=== PATIENT | male | born 1960 | race Caucasian/White ===

== ENCOUNTER 2024-08-31 05:58 | Day surgery (SDC) | payer OTHER, BC ==
[2024-08-29 11:26] LABS: Absolute Eosinophils 0.1 K/uL (0-0.5); Absolute Lymphocytes (CBC) 1.2 K/uL (0.7-4.9); Absolute Monocytes 0.6 K/uL (0.1-1.3); Absolute Neutrophil 4.5 K/uL (1.8-8.0); Basophils % 0.4 % (0-1.3); Eosinophils % 0.8 % (0-4.4); Hematocrit 42.9 % (39.6-49.0); Hemoglobin 14.3 g/dL (13.6-17.9); MCH 30.8 pg (27.0-35.0); MCHC 33.4 g/dL (32.0-36.0); MCV 92.1 fL (80-100); MPV 9.4 fL (7.6-11.3); Monocytes % 8.9 % (3.3-12.3); Neutrophils % 70.9 % (41.7-73.7); Platelets 194 thou/uL (152-406); RBC Red Blood Cell Count 4.66 M/uL (4.33-5.43); Red Cell Distribution Width 13.3 % (12.1-15.2)
[2024-08-29 11:33] LABS: Anion Gap 3.2 mEq/L (5.0-15.0); Potassium 4.2 mEq/L (3.5-5.1)
--- NOTE | 2024-08-29 17:07 | RAD REPORT ---
EXAMINATION: TWO VIEW CHEST XR CLINICAL INDICATION: Male, 64 years old[address] [facility] MA[facility] pre op for day surgery. Hypertension TECHNIQUE: 2 view radiographs of the chest were performed. COMPARISON: No prior exam. FINDINGS: The lungs are well inflated and clear. No pneumothorax or sizable effusion. The heart is normal in si ze. Mediastinal contours are unremarkable. IMPRESSION: No acute or significant abnormalities.
--- NOTE | 2024-08-30 11:51 | EKG ---
Test Date: 2024-08-29 Test Time: 11:40:40 Joy Operator: MARIELENA MEASUREMENT RESULTS: Intervals: Rate: 73 OK: 198 QRSD: 128 QT: 410 QTc: 451 [place]: P: 59 OK: 198 QRS: 57 T: 18 INTERPRETIVE STATEMENTS: Normal sinus rhythm Right bundle branch block Abnormal ECG No previous ECG available for comparison Electronically Signed On 08-30-24 11:50:26 CERTIFIED NOVELL ADMINISTRATOR by Haseeb Almonte
[2024-08-31] MEDS ORDERED: CEFAZOLIN SODIUM 1 GM/VIAL ONE (06:16)
[2024-08-31] MEDS ORDERED: ROCURONIUM 50 MG/5 ML VIAL IV ONE (06:42)
[2024-08-31] MEDS ORDERED: propofoL 200 MG/20 ML VIAL IV ONE (06:42)
[2024-08-31] MEDS ORDERED: KETOROLAC 30 MG/ML INJ ONE (06:42)
[2024-08-31] MEDS ORDERED: LIDOCAINE 2% MPF 5 ML VIAL ONE (06:42)
[2024-08-31] MEDS ORDERED: dexAMETHasone 10 MG/ML VIAL ONE (06:42)
[2024-08-31] MEDS ORDERED: ONDANSETRON 4 MG/2 ML VIAL ONE (06:42)
[2024-08-31] MEDS ORDERED: MIDAZOLAM HCL 2 MG/2 ML INJ ONE (06:43)
[2024-08-31] MEDS ORDERED: FENTANYL CITR 100 MCG/2 ML ONE (06:43)
[2024-08-31] MEDS: Ringers Lactate 1,000 ML IV ONE ×2 (07:10→08:25)
[2024-08-31] MEDS: BUPIVACAINE 0.5% PF 10 ML VIAL ONE ×2 (07:41→08:15)
[2024-08-31] MEDS ORDERED: VECURONIUM 10 MG/VIAL IV ONE (07:56)
[2024-08-31] MEDS ORDERED: NS 0.9% VIAL 10 ML ONE (07:56)
[2024-08-31] MEDS ORDERED: Mastisol Adhesive Liq ONE (08:29)
[2024-08-31] MEDS ORDERED: GLYCOPYRROLATE 0.2 MG/ML SYR ONE (08:37)
[2024-08-31] MEDS ORDERED: NEOSTIGMINE 1 MG/ML -10 ML VIAL ONE (08:37)
--- NOTE | 2024-08-31 08:44 | P.OP ---
Date of Service: 08/31/24 Preop diagnosis: Ventral hernia and right inguinal hernia Postop diagnosis: Same Procedure performed: Laparoscopic repair of ventral hernia and open repair of right inguinal hernia Surgeon: Tanvir Fregoso MD Conservation Engineer: Cecily JIMENEZ Estimated blood loss: Minimal Specimen: Hernia sac and cord lipoma Findings: As above Anesthesia: General Complications: None Drains: None Fluids and blood products: Nonapplicable Disposition: Recovery room Operative note: Patient brought to the OR placed in supine position. General anesthesia began. Patient prepped and draped in usual sterile fashion. Marcaine 0.5% infiltrated locally. 15 blade used to make a 1 cm left upper quadrant incision. Subcutaneous tissue divided. Bleeding controlled cautery. Fascia identified and divided. #1 Vicryl stay suture placed. Peritoneal cavity entered with sharp and blunt dissection. 12 mm trocar placed in the peritoneal cavity under direct vision. Pneumoperitoneum established. 5 mm meter trocar placed in the left lower quadrant. Laparoscopy revealed a small ventral hernia with preperitoneal fat. A 3 cm incision made over the hernia itself. Subcutaneous tissue divided. Hernia sac and contents identified. Hernia sac freed from the surrounding structures as well as the fascial edges. Hernia sac removed and sent to pathology as specimen. Approximately a 2 cm defect remained. A medium size Ventralex mesh placed and the hernia defect closed with #1 PDS suture. Absorbable tack used to secure the mesh to the peritoneal surface. Complete coverage of the hernia defect accomplished with 3 cm borders in all sites. No evidence of bowel injury or bleeding noted. All trocars removed under direct vision. Stay sutures tied to each other to reapproximate the fascial defect. Subcutaneous wounds irrigated and bleeding controlled cautery. 3-0 chromic used to approximate subcutaneous tissue and close skin. A 4 cm oblique incision made between the right pubic tubercle and the anterior iliac superior spine. Subcutaneous tissue divided. Kashif's fascia identified and divided. Bleeding controlled cautery. Aponeurosis of the external abdominal oblique identified and mobilized inferiorly to expose the shelving edge. The aponeurosis opened through the external ring. Ilioinguinal nerve and cord structures identified and mobilized at the pubic tubercle. Cord skeletonized. A large cord lipoma excised and the base tied off with 2-0 chromic. The cord lipoma sent to pathology as specimen. There was no indirect sac present. There was a direct right inguinal hernia present and this sac was reduced back into the peritoneal cavity. The floor of the inguinal region was reapproximated by joining the conjoined tendon to the shelving edge starting at the pubic tubercle and creating a new internal ring. This was done with 2-0 Prolene suture. Marlex mesh plug was placed in the internal ring and secured with the tacker. Onlay mesh was placed in the inguinal floor secured medially to the pubic tubercle, superior to the conjoined tendon, inferior to the shelving edge and laterally to each other. Cord structures and ilioinguinal nerve placed back in their anatomic location. Aponeurosis closed with 2-0 running Prolene suture. 3-0 chromic used to reapproximate Kashif's fascia. 3-0 chromic also used to close skin. Sterile dressing applied. Patient awakened and taken to recovery room in good general condition. CC: Dr. Manasa Fregoso's office
[2024-08-31] MEDS ORDERED: HYDROCODONE/APAP 7.5/325 MG TAB ONE (10:14)
[2024-08-31] MEDS: HYDROCODONE/APAP 7.5/325 MG TAB PO PRN (10:16)
[2024-08-31 12:08] VITALS: O2SAT 100
[2024-08-31 14:05] VITALS: BP 112/67; TEMP 98.1
== END 2024-08-31 12:27 | disposition home or self-care (01) ==
LOC: OR 05:58
PROVIDERS: ATTEND Surgery
PROC: 0WUF4JZ Supplement Abdominal Wall with Synthetic Substitute, Percutaneous Endoscopic Approach (ICD-10-PCS; principal; 2024-08-31 07:00)
PROC: 0YU50JZ Supplement Right Inguinal Region with Synthetic Substitute, Open Approach (ICD-10-PCS; 2024-08-31 07:00)
DX: K43.9 Ventral hernia without obstruction or gangrene (principal); K40.90 Unilateral inguinal hernia, without obstruction or gangrene, not specified as recurrent
CPT/HCPCS: 93005; 85025; 80048; 36415; 88302; 71046; 49593; 49505; A4216; J2704; J2710; J2003; J2250; J3010; J1100; J2405; J7120 ×2; J0690; A4314

== ENCOUNTER 2024-12-10 07:01 | Day surgery (SDC) | payer OTHER, BC ==
[2024-12-05 13:53] LABS: Absolute Eosinophils 0.1 K/uL (0-0.5); Absolute Lymphocytes (CBC) 1.4 K/uL (0.7-4.9); Absolute Monocytes 0.5 K/uL (0.1-1.3); Absolute Neutrophil 3.5 K/uL (1.8-8.0); Basophils % 0.6 % (0-1.3); Eosinophils % 1.6 % (0-4.4); Hematocrit 42.1 % (39.6-49.0); Hemoglobin 14.4 g/dL (13.6-17.9); Lymphocytes % 25.6 % (15.3-44.8); MCH 30.6 pg (27.0-35.0); MCHC 34.2 g/dL (32.0-36.0); MCV 89.6 fL (80-100); MPV 9.5 fL (7.6-11.3); Monocytes % 8.7 % (3.3-12.3); Neutrophils % 63.5 % (41.7-73.7); Platelets 206 thou/uL (152-406); Red Cell Distribution Width 13.8 % (12.1-15.2)
[2024-12-05 14:04] LABS: Anion Gap 7.1 mEq/L (5.0-15.0); Potassium 4.1 mEq/L (3.5-5.1)
[2024-12-10] MEDS: Ringers Lactate 1,000 ML IV ONE (07:30)
[2024-12-10] MEDS ORDERED: LIDOCAINE 1% MPF 30 ML VIAL ONE (07:46)
[2024-12-10] MEDS ORDERED: GLYCOPYRROLATE 0.2 MG/ML SYR ONE (07:46)
[2024-12-10] MEDS ORDERED: propofoL 200 MG/20 ML VIAL IV ONE (07:46)
[2024-12-10] MEDS ORDERED: SIMETHICONE 40 MG/ 0.6 ML ONE (07:53)
[2024-12-10 11:09] VITALS: TEMP 98; O2SAT 100
[2024-12-10 11:32] VITALS: BP 130/76
--- NOTE | 2024-12-12 18:04 | PREOPHP ---
Date of Admission: 12/10/2024 Chief Complaint: Patient needs colonoscopy. History Of Present Illness: The patient is a 64-year-old gentleman, need for colonoscopy. His last colonoscopy was 2-1/2 years ago. He has a history of polyps. He also has brother with colon cancer who was diagnosed at the age of 64. The patient denies any nausea, vomiting, blood per rectum, diarr hea, constipation, or change in bowel habits. Review of system is negative for any sore throat, runn y nose, cough, headaches, dizziness, chest pain, fevers, or chills. Review of Systems: Otherwise, unremarkable. Past Medical History: Personal history of polyposis, hypertension, hypercholesterolemia. Past Surgical History: Bilateral hip surgery, jaw surgery and tonsillectomy and adenoidectomy. Medications: Reviewed. Allergies: NO ALLERGIES. Social History: The patient does not smoke. Drinks occasionally. Family History: Noncontributory. Physical Examination: Vital Signs: Stable. He is afebrile. General: He is awake, alert, oriented x3. Head and Neck: No masses. Chest: Clear. Heart: S1, S2. Abdomen: Soft. Extremities: Neurovascularly intact. Neuro: Nonfocal. Assessment: History of polyposis and family history of colon cancer. Plan: Colonoscopy. Patient understands risks, benefits, and alternatives, and agrees to procedure. NICOLAS/MODL Voice ID: [id number]
== END 2024-12-10 10:50 | disposition home or self-care (01) ==
LOC: OR 07:01
PROVIDERS: ATTEND Surgery
PROC: 0DJD8ZZ Inspection of Lower Intestinal Tract, Via Natural or Artificial Opening Endoscopic (ICD-10-PCS; principal; 2024-12-10 08:30)
DX: Z12.11 Encounter for screening for malignant neoplasm of colon (principal); Z86.0100 Personal history of colon polyps, unspecified; Z80.0 Family history of malignant neoplasm of digestive organs; K57.30 Diverticulosis of large intestine without perforation or abscess without bleeding
CPT/HCPCS: 85025; 80048; 36415; J2704; J2003; J7120; G0121